=== PATIENT | female | born 1940 | race Caucasian/White ===

== ENCOUNTER 2018-02-19 10:16 | Observation (INO) | payer MEDICARE ==
[~2018-02-19] VITALS: Ht 157.5 cm; Wt 54.0 kg
[~2018-02-19 10:16] MED LIST: ADVAIR 100-501 EACH INH; ALENDRONATE SOD70 MG PO; AMLODIPINE BESYL5 MG PO; ASPIRIN81 MG PO; BUSPIRONE HCL5 MG PO; CARVEDILOL12.5 MG PO; CARVEDILOL25 MG PO; LOSARTAN POTASS25 MG PO; LOSARTAN POTASS50 MG PO; METFORMIN HCL500 MG PO; OMEPRAZOLE20 M1 PO; PROAIR HFA INH8.5 GM INH; PROAIR HFA INH8.5 GM PO; SIMVASTATIN80 MG PO
[2018-02-19] MEDS ORDERED: ENALAPRILAT IV INJ 1.25 MG/ML VIAL IV STA ×2 (10:31→12:01)
[2018-02-19] MEDS ORDERED: DEXAMETHASONE SOD PHOS 10 MG/1 ML VIAL IV ONE (10:45)
[2018-02-19] MEDS ORDERED: ALBUTEROL/IPRATROPIUM 3 ML NEB NEB ONE ×2 (10:45→12:30)
[2018-02-19] MEDS ORDERED: MAGNESIUM SULFATE 2GM/50ML 50 ML IV ONE (10:45)
[2018-02-19 11:13] LABS: BASOPHILS % 0.1 % (0.0-1.0); HEMATOCRIT 39.3 % (34.2-44.1); LYMPHOCYTES # (AUTO) 1.2 (1.0-3.2); LYMPHOCYTES % 12.5 % (18.0-39.1); MEAN CORPUSCULAR HEMOGLOBIN 29.7 pg (28-32); MEAN CORPUSCULAR HGB CONC 33.1 g/dL (31-35); MEAN CORPUSCULAR VOLUME 89.7 fL (81-99); MONOCYTES # (AUTO) 0.7 (0.2-0.8); NEUTROPHILS # (AUTO) 7.9 (2.1-6.9); NEUTROPHILS % 79.8 % (38.7-80.0); PLATELET COUNT 282 x10e3/uL (140-360); RED BLOOD COUNT 4.38 x10e6/uL (3.6-5.1); RED CELL DISTRIBUTION WIDTH 13.5 % (11.7-14.4)
--- NOTE | 2018-02-19 11:27 | Diagnostic Imaging Report ---
PROCEDURE: Frontal and lateral views of the chest. COMPARISON: Chest radiograph 01/03/2017 INDICATIONS: COUGH, SHORNTESS OF BREATH FINDINGS: Lines/tubes: Removal of the right internal jugular catheter since 01/03/2017. Lungs: The lungs are hyperinflated and clear. There is no evidence of pneumonia or pulmonary edema. Pleura: There is no pleural effusion or pneumothorax. Heart and mediastinum: Aortic calcifications. Heart cardiac silhouette is normal in size. Bones: No acute bony abnormality. IMPRESSION: No acute cardiopulmonary disease. Dictated by: Too Rodriguez M.D. on 02/19/2018 at 11:28 Electronically approved by: Too Rodriguez M.D. on 02/19/2018 at 11:28
[2018-02-19 11:32] LABS: ALANINE AMINOTRANSFERASE 24 IU/L (0-55); ALBUMIN 3.5 g/dL (3.5-5.0); ALBUMIN/GLOBULIN RATIO 0.9 (0.8-2.0); ALKALINE PHOSPHATASE 79 IU/L (40-150); ANION GAP 14.2 mmol/L (8-16); BLOOD UREA NITROGEN 9 mg/dL (7-26); BUN/CREATININE RATIO 14 (6-25); CALCIUM 9.9 mg/dL (8.4-10.2); CARBON DIOXIDE 27 mmol/L (22-29); CHLORIDE 103 mmol/L (98-107); CREATININE, SERUM 0.64 mg/dL (0.57-1.11); EST GLOMERULAR FILTRATION RATE > 60 ML/MIN (60-); GLUCOSE 129 mg/dL (74-118); POTASSIUM 3.2 mmol/L (3.5-5.1); SODIUM 141 mmol/L (136-145)
--- OUTSIDE RECORDS SUMMARY | 2018-02-19 12:43 | XMS REPORT ---
Author Author [facility] Address Unknown Phone Unavailable Care Team Providers Care Crayon Grader Name Role Phone FUAD TORRES Unavailable Unavailable Problems This patient has no known problems. Allergies, Adverse Reactions, Alerts This patient has no known allergies or adverse reactions. Medications This patient has no known medications. Results Test Description Test Time Test Comments Text Results Atomic Results Result Comments CHEST 2 VIEWS [place] [address] Patient Name: FORREST TALBOT MR #: [id number] : 1940 Age/Sex: 77/F Req #: [id number] Adm Physician: Ordered by: FUAD TORRES MD Report #: [id number] Location: ER Room/Bed: Procedure: [id number] DX/CHEST 2 VIEWS Exam Date: 02/19/18 Exam Time: 1050 REPORT STATUS: Signed PROCEDURE: Frontal and lateral views of the chest. COMPARISON: Chest radiograph 01/03/2017 INDICATIONS: COUGH, SHORNTESS OF BREATH FINDINGS: Lines/tubes: Removal of the right internal jugular catheter since 01/03/2017. Lungs: The lungs are hyperinflated and clear. There is no evidence of pneumonia or pulmonary edema. Pleura: There is no pleural effusion or pneumothorax. Heart and mediastinum: Aortic calcifications. Heart cardiac silhouette is normal in size. Bones: No acute bony abnormality. IMPRESSION: No acute cardiopulmonary disease. Dictated by: Too Rodriguez M.D. on 09/2018 at 11:28 Electronically approved by: Too Rodriguez M.D. on 02/19 at 11:28 Dictated By: TOO RODRIGUEZ MD [id number] Transcribed By: LORNA on 02/19/18 1128 COPY TO: FUAD TORRES MD
[2018-02-19] MEDS ORDERED: LEVOFLOXACIN 500MG/D5W 100ML IV SCH (12:45)
[2018-02-19] MEDS ORDERED: SODIUM CHLORIDE FLUSH 10 ML SYR INJ PRN (12:45)
[2018-02-19] MEDS ORDERED: ASPIRIN 81 MG CHEW TAB PO ONE (12:45)
[2018-02-19] MEDS: METHYLPREDNISOLONE SOD SUCC 125 MG/2ML VIAL IV SCH ×2 (14:12→23:12)
--- NOTE | 2018-02-19 15:45 | History and Physical ---
PRIMARY CARE PHYSICIAN: Keiry Lopez MD CHIEF COMPLAINT: Shortness of breath. HISTORY OF PRESENT ILLNESS: This is a 77-year-old woman with history of COPD, who developed worsening shortness of breath when she quit cigarettes 3 years ago. She went to her primary care doctor due to the shortness of breath and left-sided mild chest discomfort. She was given medication, which she does not recall the name of. Due to worsening symptoms, she came to the hospital for the worsening shortness of breath. She denies any dizziness. Denies any nausea, vomiting or diarrhea. PAST MEDICAL HISTORY: COPD, diabetes mellitus type 2, tobacco abuse, GERD, gastroenteritis, dehydration, acute kidney injury, hyperlipidemia, hypertension, osteoporosis. PAST SURGICAL HISTORY: Hysterectomy. ALLERGIES: PER ELECTRONIC MEDICAL RECORD. FAMILY HISTORY: Hypertension. SOCIAL HISTORY: The patient is . She has 2 children. She lives with her daughter. No alcohol or illicits. She quit cigarettes 3 years ago. MEDICATIONS: Per electronic medical record. REVIEW OF SYSTEMS: Denies any dizziness, fever, chills, sweats. VITAL SIGNS: Reviewed. PHYSICAL EXAMINATION GENERAL: A tired-appearing woman resting in bed. HEENT: Anicteric. Pupils are responsive to light. No oral lesions. CARDIOVASCULAR: Normal S1 and S2. LUNGS: She has moderate breath sounds, some moderate decrease at the bases. She has scattered wheezing. ABDOMEN: Soft, nontender, nondistended. EXTREMITIES: No edema or calf tenderness. NEUROLOGIC: Alert, oriented times 3, moving all extremities. SKIN: Dry. PSYCHIATRIC: Normal affect. LABS: Reviewed. MEDICATIONS: Reviewed. ASSESSMENT AND PLAN: This is a 77-year-old woman. 1. Acute exacerbation of chronic obstructive pulmonary disease. We will treat with antihistamine, antitussive, antibiotics, and steroids. Chest x-ray is clear. 2. Cough. Use antitussive medication. 3. Diabetes mellitus, type 2. Obtain hemoglobin A1c and lipid panel. Use sliding-scale insulin. 4. Hypokalemia. Replace and recheck. 5. Hypertension. Restart calcium channel jayesh. 6. Hyperlipidemia. Continue statin. 7. Prophylaxis: Will use Lovenox and Pepcid. 8. Disposition: Monitor closely. Follow up labs in the morning and treat. Job#: [id number]
[2018-02-19] MEDS: GUAIFENESIN/DEXTROMETHORPHAN LIQD 5 ML UDC NG PRN (16:45)
[2018-02-19] MEDS: ENOXAPARIN SOD INJ 40 MG/0.4 ML SYR SC SCH (16:45)
[2018-02-19] MEDS: FAMOTIDINE 20 MG TAB PO SCH (16:45)
[2018-02-19] MEDS: CARVEDILOL 12.5 MG TAB PO SCH (16:45)
[2018-02-19] MEDS ORDERED: NON-FORMULARY MEDICATION (Carvedilol 25 MG) PO SCH (17:00)
[2018-02-19] MEDS ORDERED: GUAIFENESIN 600MG/DEXTROMETHORPHAN 30MG TABSR PO SCH (17:00)
[2018-02-19] MEDS: ALBUTEROL/IPRATROPIUM 3 ML NEB NEB SCH ×2 (19:25→23:00)
[2018-02-19 19:50] LABS: CREATINE KINASE 81 IU/L (29-168)
[2018-02-19 22:00] VITALS: BP 135/80
[2018-02-19] MEDS: BENZONATATE 100 MG CAP PO SCH (23:12)
[2018-02-19] MEDS ORDERED: POTASSIUM CHLORIDE 20 MEQ TAB CR PO STA (23:21)
[2018-02-19] MEDS ORDERED: DEXTROSE 50% SYRINGE 50 ML IV PRN (23:30)
[2018-02-20] VITALS: BP 161/76
[2018-02-20] MEDS: GUAIFENESIN/DEXTROMETHORPHAN LIQD 5 ML UDC NG PRN ×2 (00:14→20:42)
[2018-02-20] MEDS: ALBUTEROL/IPRATROPIUM 3 ML NEB NEB SCH ×4 (02:45→18:45)
[2018-02-20 03:31] LABS: BASOPHILS % 0.1 % (0.0-1.0); HEMATOCRIT 36.7 % (34.2-44.1); HEMOGLOBIN 12.1 g/dL (12.0-16.0); LYMPHOCYTES % 12.2 % (18.0-39.1); MEAN CORPUSCULAR HEMOGLOBIN 29.3 pg (28-32); MEAN CORPUSCULAR VOLUME 88.9 fL (81-99); MONOCYTES # (AUTO) 0.2 (0.2-0.8); MONOCYTES % 2.7 % (4.4-11.3); NEUTROPHILS % 84.5 % (38.7-80.0); PLATELET COUNT 262 x10e3/uL (140-360); RED BLOOD COUNT 4.13 x10e6/uL (3.6-5.1); RED CELL DISTRIBUTION WIDTH 13.5 % (11.7-14.4)
[2018-02-20 03:46] LABS: BLOOD UREA NITROGEN 16 mg/dL (7-26); BUN/CREATININE RATIO 25 (6-25); CALCIUM 8.9 mg/dL (8.4-10.2); CARBON DIOXIDE 29 mmol/L (22-29); CHLORIDE 106 mmol/L (98-107); CREATINE KINASE 83 IU/L (29-168); CREATININE, SERUM 0.65 mg/dL (0.57-1.11); EST GLOMERULAR FILTRATION RATE > 60 ML/MIN (60-); GLUCOSE 186 mg/dL (74-118); SODIUM 142 mmol/L (136-145)
[2018-02-20 04:00] VITALS: BP 154/69
[2018-02-20] MEDS: METHYLPREDNISOLONE SOD SUCC 125 MG/2ML VIAL IV SCH (05:30)
[2018-02-20] MEDS ORDERED: ACETAMINOPHEN 325 MG TAB PO PRN (06:45)
[2018-02-20] MEDS: FAMOTIDINE 20 MG TAB PO SCH ×2 (08:21→15:44)
[2018-02-20] MEDS: LORATADINE 10 MG TAB PO SCH (08:21)
[2018-02-20] MEDS: ASPIRIN 81 MG CHEW TAB PO SCH (08:21)
[2018-02-20] MEDS: BUSPIRONE HCL 5 MG TAB PO SCH (08:21)
[2018-02-20] MEDS: CARVEDILOL 12.5 MG TAB PO SCH ×2 (08:21→16:41)
[2018-02-20] MEDS: LOSARTAN POTASSIUM 25 MG TAB PO SCH (08:22)
[2018-02-20] MEDS: AMLODIPINE BESYLATE 5 MG TAB PO SCH (08:22)
[2018-02-20] MEDS: BENZONATATE 100 MG CAP PO SCH ×3 (08:22→20:33)
[2018-02-20 08:48] VITALS: BP 173/75
[2018-02-20] MEDS ORDERED: NON-FORMULARY MEDICATION (Losartan Potassium 50 MG) PO SCH (09:00)
[2018-02-20 10:36] VITALS: BP 173/75
[2018-02-20 12:00] VITALS: BP 178/74
[2018-02-20] MEDS ORDERED: SODIUM CHLORIDE 0.9% 250ML 250 ML ONE (13:12)
[2018-02-20] MEDS: LEVOFLOXACIN 500MG/D5W 100ML 100 ML IV SCH (13:16)
[2018-02-20] MEDS ORDERED: METHYLPREDNISOLONE SOD SUCC 125 MG/2ML VIAL IV SCH (14:00)
[2018-02-20] MEDS: METHYLPREDNISOLONE SOD SUCC 40 MG/ML VIAL IV SCH ×2 (14:28→22:45)
[2018-02-20 16:34] VITALS: BP 159/71
[2018-02-20] MEDS: ENOXAPARIN SOD INJ 40 MG/0.4 ML SYR SC SCH (16:42)
[2018-02-21] VITALS (7 sets, daily range): BP systolic 153–186; BP diastolic 70–80
[2018-02-21] MEDS: ALBUTEROL/IPRATROPIUM 3 ML NEB NEB SCH ×3 (01:00→13:30)
[2018-02-21] MEDS: METHYLPREDNISOLONE SOD SUCC 40 MG/ML VIAL IV SCH ×2 (06:15→15:26)
[2018-02-21] MEDS ORDERED: PREDNISONE20 MG PO (06:17)
[2018-02-21] MEDS ORDERED: TESSALON PERLE100 MG PO (06:17)
[2018-02-21] MEDS ORDERED: Guaifenesin/Dextromethorphan NG (06:17)
[2018-02-21] MEDS ORDERED: LORATADINE10 MG PO (06:17)
[2018-02-21] MEDS ORDERED: LEVAQUIN500 MG PO (06:17)
[2018-02-21] MEDS: CARVEDILOL 12.5 MG TAB PO SCH ×2 (08:28→17:37)
[2018-02-21] MEDS: LORATADINE 10 MG TAB PO SCH (08:28)
[2018-02-21] MEDS: FAMOTIDINE 20 MG TAB PO SCH ×2 (08:28→16:59)
[2018-02-21] MEDS: ASPIRIN 81 MG CHEW TAB PO SCH (08:28)
[2018-02-21] MEDS: AMLODIPINE BESYLATE 5 MG TAB PO SCH (08:29)
[2018-02-21] MEDS: LOSARTAN POTASSIUM 25 MG TAB PO SCH (08:29)
[2018-02-21] MEDS: BENZONATATE 100 MG CAP PO SCH ×3 (08:29→15:26)
[2018-02-21] MEDS: BUSPIRONE HCL 5 MG TAB PO SCH (08:42)
--- NOTE | 2018-02-21 09:01 | Progress Note ---
DATE: February 20, 2018 TIME: 6:30 a.m. OVERNIGHT: Some shortness of breath. REVIEW OF SYSTEMS: Denies any dizziness or chest pain. PHYSICAL EXAMINATION VITAL SIGNS: Reviewed. GENERAL: A tired-appearing woman resting in bed. HEENT: Anicteric. CARDIOVASCULAR: Normal S1 and S2. LUNGS: She has reduced breath sounds. ABDOMEN: Soft and nontender. EXTREMITIES: No edema. SKIN: Dry. PSYCHIATRIC: Normal affect. LABS: Reviewed. MEDICATIONS: Reviewed. ASSESSMENT: A 77-year-old woman with: 1. Acute exacerbation of chronic obstructive pulmonary disease. 2. Cough. 3. Diabetes mellitus, type 2. 4. Hypokalemia. 5. Hypertension. 6. Hyperlipidemia. PLAN 1. Continue antitussive medications. 2. Continue steroids. 3. Continue antihistamines. 4. Continue oxygen support. 5. Physical therapy. 6. Discharge planning. Job#: [id number] RAKEL
--- NOTE | 2018-02-21 09:46 | Discharge Summary ---
PRINCIPAL DIAGNOSES 1. Acute exacerbation of chronic obstructive pulmonary disease. 2. Diabetes mellitus, type 2. 3. Hypokalemia. 4. Hypertension. 5. Hyperlipidemia. SECONDARY DIAGNOSIS: Hypertension. CHIEF COMPLAINT: Shortness of breath. HISTORY OF PRESENT ILLNESS: This is a 77-year-old woman with shortness of breath. Please refer to the H and P for further details. HOSPITAL COURSE: The patient was treated with steroids, antitussive medications, antihistamine and antibiotics for treatment of acute exacerbation of COPD. Did well. Hemoglobin A1c was obtained, which was 6.3. LDL was 98. The patient is doing well. We will check her oxygen on ambulation without oxygen and determine if she needs oxygen at home. DISCHARGE MEDICATIONS: Per electronic medical record. FOLLOWUP: With primary care doctor in 1 week. CONDITION ON DISCHARGE: Stable and improving. DISCHARGE LOCATION: Home. RACHELE WILLARD MD Job#: [id number]
[2018-02-21] MEDS ORDERED: DEXTROSE 50% SYRINGE 50 ML IV PRN (12:15)
[2018-02-21] MEDS: LEVOFLOXACIN 500MG/D5W 100ML 100 ML IV SCH (12:21)
[2018-02-21] MEDS: INSULIN REGULAR, HUMAN 100 UNIT/1 ML 3ML VIAL SQ SCH ×2 (12:29→17:38)
[2018-02-21] MEDS ORDERED: NIFEDIPINE CR 30 MG TAB PO SCH (12:30)
[2018-02-21] MEDS ORDERED: HYDRALAZINE HCL 20 MG/ML VIAL IV ONE (15:15)
[2018-02-21] MEDS ORDERED: INSULIN REGULAR, HUMAN 100 UNIT/1 ML 3ML VIAL SQ SCH (16:30)
[2018-02-21] MEDS: ENOXAPARIN SOD INJ 40 MG/0.4 ML SYR SC SCH (17:00)
[2018-02-21] MEDS: GUAIFENESIN/DEXTROMETHORPHAN LIQD 5 ML UDC NG PRN (17:00)
== END 2018-02-21 17:50 | disposition home or self-care (01) ==
LOC: ER 10:16 → ERHOLD 12:41 → IMCU 20:31
PROVIDERS: ADMIT Internal Medicine; ATTEND Internal Medicine
DX: J44.0 Chronic obstructive pulmonary disease with (acute) lower respiratory infection (principal); J20.9 Acute bronchitis, unspecified; J44.1 Chronic obstructive pulmonary disease with (acute) exacerbation; Z87.891 Personal history of nicotine dependence; E11.9 Type 2 diabetes mellitus without complications; E87.6 Hypokalemia; E78.5 Hyperlipidemia, unspecified; I10 Essential (primary) hypertension; K21.9 Gastro-esophageal reflux disease without esophagitis
CPT/HCPCS: 36415 ×3; 71046; 80048; 80053; 80061; 82550 ×2; 82553 ×2; 82948 ×2; 83036; 84484 ×2; 85025 ×2; 87040; 87400; 93005; 94640 ×5; 97116; 97161; 99284; G0378 ×3; J0360; J1100; J1650 ×2; J1956 ×3; J2920 ×2; J2930 ×2; J7050

== ENCOUNTER 2019-08-02 09:52 | Inpatient (IN) | payer MEDICARE ==
[~2019-08-02] VITALS: Ht 157.5 cm; Wt 59.9 kg
[~2019-08-02 09:52] MED LIST changes: +Guaifenesin/Dextromethorphan NG; +LEVAQUIN500 MG PO; +LORATADINE10 MG PO; +PREDNISONE20 MG PO; +TESSALON PERLE100 MG PO
--- OUTSIDE RECORDS SUMMARY | 2019-08-02 09:55 | XMS REPORT | Continuity of Care Document ---
Author Author [facility] Address Unknown Phone Unavailable Care Team Providers Care Steward/Stewardess Night Name Role Phone [facility] [employer] Information [place] Unavailable Unavailable Problems Problem Status Onset Date Classification Date Reported Comments Source Bronchitis Active Problem 02/21/[address] [facility] Chronic obstructive pulmonary disease with acute exacerbation Active Problem 02/21/[address] [facility] Medications Medication Details Route Status Patient Instructions Ordering Provider Order Date Source Benzonatate (Tessalon Perle) 100 Mg Capsule Three Times A Day Active [facility] 02/21/[address] [facility] Guaifenesin/Dextromethorphan 10 Ml Liqd Three Times A Day as needed for Cough Active [facility] 02/21/[address] [facility] Levofloxacin (Levaquin) 500 Mg Tablet Daily Active [facility] 02/21/[address] [facility] Loratadine 10 Mg Tablet Daily Active [facility] 02/21/[address] [facility] Prednisone 20 Mg Tab Every [address] [facility] 02/21/[address] [facility] Amlodipine Besylate 5 Mg Tablet, 5 Mg Oral Daily Active 02/21/[address] [facility] Albuterol Sulfate (Proair Hfa Inhaler*) 8.5 Gm Inh, Oral As Needed Active 07/31/[address] [facility] Carvedilol 12.5 Mg Tablet, 25 Mg Oral Twice A Day Active 07/31/[address] [facility] Omeprazole 20 Mg Tablet.dr, 20 Mg Oral Daily Active 07/31/[address] [facility] Losartan Potassium 25 Mg Tablet, 50 Mg Oral Daily Active 01/07/[address] [facility] Metformin Hcl 500 Mg Tablet, 500 Mg Oral Twice A Day Active 01/07/[address] [facility] Albuterol Sulfate (Proair Hfa Inhaler*) 8.5 Gm Inh As Needed Active [facility] Alendronate Sodium 70 Mg Tablet Wkly Active [facility] Aspirin 81 Mg Tab.chew Daily Active [facility] Buspirone Hcl 5 Mg Tablet Daily Active [facility] Carvedilol 25 Mg Tablet Twice A Day Active [facility] Fluticasone/Salmeterol (Advair 100-50 Diskus) 1 Each Disk.w.dev Twice A Day Active [facility] Losartan Potassium 50 Mg Tablet Daily Active [facility] Simvastatin 80 Mg Tablet Daily Active [facility] Allergies, Adverse Reactions, Alerts Substance Category Reaction Severity Reaction type Status Date Reported Comments Source Penicillin RASH Unknown Allergy to Substance Active 07/31/[address] [facility] Sulfa (Sulfonamide Antibiotics) RASH Unknown Allergy to Substance Active 07/31/[address] [facility] Codeine RASH Unknown Allergy to Substance Active 07/31/[address] [facility] Immunizations No Data Provided for This Section Results Order Name Results Value Reference Range Date Interpretation Comments Source Capillary blood glucose measurement by glucometer (mass/volume) Capillary blood glucose measurement by glucometer (mass/volume) 157 70 - 120 02/21/[address] [facility] Influenza virus A and B antigen identification by immunofluorescence Influenza virus A and B antigen identification by immunofluorescence NEGATIVE NEGATIVE 02/20/[address] [facility] Automated blood basophil count (count/volume) Automated blood basophil count (count/volume) 0.0 0.0 - 0.1 02/20/[address] [facility] Automated blood basophil count as percentage of total leukocytes Automated blood basophil count as percentage of total leukocytes 0.1 0.0 - 1.0 02/20/[address] [facility] Automated blood eosinophil count Automated blood eosinophil count 0.0 0.0 - 0.4 02/20/[address] [facility] Automated blood eosinophil count as percentage of total leukocytes Automated blood eosinophil count as percentage of total leukocytes 0.0 0.0 - 6.0 02/20/[address] [facility] Automated blood hematocrit (volume fraction) Automated blood hematocrit (volume fraction) 36.7 34.2 - 44.1 02/20/[address] [facility] Automated blood lymphocyte count as percentage ot total leukocytes Automated blood lymphocyte count as percentage ot total leukocytes 12.2 18.0 - 39.1 02/20/[address] [facility] Automated blood monocyte count as percentage of total leukocytes Automated blood monocyte count as percentage of total leukocytes 2.7 4.4 - 11.3 02/20/[address] [facility] Automated blood neutrophil count Automated blood neutrophil count 7.0 2.1 - 6.9 02/20/[address] [facility] Automated blood platelet count (count/volume) Automated blood platelet count (count/volume) 262 140 - 360 02/20/[address] [facility] Automated blood segmented neutrophil count as percentage of total leukocytes Automated blood segmented neutrophil count as percentage of total leukocytes 84.5 38.7 - 80.0 02/20/[address] [facility] Automated erythrocyte mean corpuscular hemoglobin (mass per erythrocyte) Automated erythrocyte mean corpuscular hemoglobin (mass per erythrocyte) 29.3 28 - 32 02/20/[address] [facility] Automated erythrocyte mean corpuscular hemoglobin concentration measurement (mass/volume) Automated erythrocyte mean corpuscular hemoglobin concentration measurement (mass/volume) 33.0 31 - 35 02/20/[address] [facility] Automated erythrocyte mean corpuscular volume Automated erythrocyte mean corpuscular volume 88.9 81 - 99 02/20/[address] [facility] Blood erythrocytes automated count (number/volume) Blood erythrocytes automated count (number/volume) 4.13 3.6 - 5.1 02/20/[address] [facility] Blood hemoglobin measurement (moles/volume) Blood hemoglobin measurement (moles/volume) 12.1 12.0 - 16.0 02/20/[address] [facility] Blood leukocytes automated count (number/volume) Blood leukocytes automated count (number/volume) 8.22 4.8 - 10.8 02/20/[address] [facility] Blood lymphocytes count (number/volume) Blood lymphocytes count (number/volume) 1.0 1.0 - 3.2 02/20/[address] [facility] Blood monocytes automated count (number/volume) Blood monocytes automated count (number/volume) 0.2 0.2 - 0.8 02/20/[address] [facility] Estimated glomerular filtration rate (GFR) determination Estimated glomerular filtration rate (GFR) determination >60 60 02/20/[address] [facility] Glucose measurement Glucose measurement 186 74 - 118 02/20/[address] [facility] Serum or plasma anion gap Serum or plasma anion gap 11.0 8 - 16 02/20/[address] [facility] Serum or plasma calcium measurement (mass/volume) Serum or plasma calcium measurement (mass/volume) 8.9 8.4 - 10.2 02/20/[address] [facility] Serum or plasma carbon dioxide, total measurement (moles/volume) Serum or plasma carbon dioxide, total measurement (moles/volume) 29 22 - 29 02/20/[address] [facility] Serum or plasma chloride measurement (moles/volume) Serum or plasma chloride measurement (moles/volume) 106 98 - 107 02/20/[address] [facility] Serum or plasma creatine kinase MB measurement (mass/volume) Serum or plasma creatine kinase MB measurement (mass/volume) 2.80 0 - 5.0 02/20/[address] [facility] Serum or plasma creatine kinase measurement (enzymatic activity/volume) Serum or plasma creatine kinase measurement (enzymatic activity/volume) 83 29 - 168 02/20/[address] [facility] Serum or plasma creatinine measurement (mass/volume) Serum or plasma creatinine measurement (mass/volume) 0.65 0.57 - 1.11 02/20/[address] [facility] Serum or plasma potassium measurement (moles/volume) Serum or plasma potassium measurement (moles/volume) 4.0 3.5 - 5.1 02/20/[address] [facility] Serum or plasma sodium measurement (moles/volume) Serum or plasma sodium measurement (moles/volume) 142 136 - 145 02/20/[address] [facility] Serum or plasma urea nitrogen measurement (mass/volume) Serum or plasma urea nitrogen measurement (mass/volume) 16 7 - 26 02/20/[address] [facility] Serum or plasma urea nitrogen/creatinine mass ratio Serum or plasma urea nitrogen/creatinine mass ratio 25 6 - 25 02/20/[address] [facility] Troponin I measurement by highly sensitive enzyme immunoassay Troponin I measurement by highly sensitive enzyme immunoassay <0.001 0 - 0.300 02/20/[address] [facility] Red Cell Distribution Width 13.5 11.7 - 14.4 02/20/[address] [facility] IM GRANULOCYTES % 0.5 0.0 - 1.0 02/20/[address] [facility] Absolute Immature Granulocyte (auto 0.04 0 - 0.1 02/20/[address] [facility] Blood culture Blood culture NO GROWTH AFTER 48 HOURS 02/19/[address] [facility] Plasma globulin measurement (mass/volume) Plasma globulin measurement (mass/volume) 3.9 2.3 - 3.5 02/19/[address] [facility] Serum or plasma alanine aminotransferase measurement (enzymatic activity/volume) Serum or plasma alanine aminotransferase measurement (enzymatic activity/volume) 24 0 - 55 02/19/[address] [facility] Serum or plasma albumin measurement (mass/volume) Serum or plasma albumin measurement (mass/volume) 3.5 3.5 - 5.0 02/19/[address] [facility] Serum or plasma albumin/globulin mass ratio Serum or plasma albumin/globulin mass ratio 0.9 0.8 - 2.0 02/19/[address] [facility] Serum or plasma alkaline phosphatase measurement (enzymatic activity/volume) Serum or plasma alkaline phosphatase measurement (enzymatic activity/volume) 79 40 - 150 02/19/[address] [facility] Serum or plasma cholesterol in HDL measurement (mass/volume) Serum or plasma cholesterol in HDL measurement (mass/volume) 56 40 - 60 02/19/[address] [facility] Serum or plasma cholesterol in LDL measurement (mass/volume) Serum or plasma cholesterol in LDL measurement (mass/volume) 98 60 - 130 02/19/[address] [facility] Serum or plasma cholesterol measurement (mass/volume) Serum or plasma cholesterol measurement (mass/volume) 169 0 - 199 02/19/[address] [facility] Serum or plasma protein measurement (mass/volume) Serum or plasma protein measurement (mass/volume) 7.4 6.5 - 8.1 02/19/[address] [facility] Serum or plasma total bilirubin measurement (mass/volume) Serum or plasma total bilirubin measurement (mass/volume) 0.4 0.2 - 1.2 02/19/[address] [facility] Serum or plasma total cholesterol/cholesterol in HDL mass ratio Serum or plasma total cholesterol/cholesterol in HDL mass ratio 3.0 3.0 - 3.6 02/19/[address] [facility] Serum or plasma triglyceride measurement (mass/volume) Serum or plasma triglyceride measurement (mass/volume) 74 0 - 149 02/19/[address] [facility] Hemoglobin A1c Percent 6.3 4.0 - 7.0 02/19/[address] [facility] Aspartate Amino Transf (AST/SGOT) 20 5 - 34 02/19/[address] [facility] Pathology Reports No Data Provided for This Section Diagnostic Reports No Data Provided for This Section Consultation Notes No Data Provided for This Section Discharge Summaries No Data Provided for This Section History and Physicals No Data Provided for This Section Vital Signs No Data Provided for This Section Encounters Location Location Details Encounter Type Encounter Number Reason For Visit Attending Provider ADM Date DC Date Status Source Registered Clinic [id number] BRODY PARRA MD 07/30/[address] [facility] Registered Surgical Day Care [id number] BRODY PARRA MD 09/06/[address] [facility] Discharged Inpatient (obs) [id number] RACHELE WILLARD MD 02/19/2018 02/21/[address] [facility] Procedures Procedure Code Date Perfomer Comments Source X-ray of chest, two views [id number] 02/19/[address] [facility] Assessment and Plan No Data Provided for This Section Plan of Care Plan of Care Date Source Discharge Date 02/21/18 5:50pm Disposition HOME, SELF-CARE Instructions/Education Provided COPD Prescriptions See Medication Section Referrals pcp (Internal Medicine) Order Date: 5-7 Days Entered Date: 02/21/2018 6:18am Additional Instructions/Education [employer] PRESCIPT[facility] FOR PROCARDIA XL AT [facility] ON [address] 02/21/[address] [facility] Social History Social History Date Source Social History Problem Response Recorded Date/Time Onset Date Status Hx Psychiatric Problems No 02/19/2018 10:00pm Not Applicable Not Applicable Hx Eating Disorder No 02/19/2018 10:00pm Not Applicable Not Applicable Hx Substance Use Disorder No 02/19/2018 10:00pm Not Applicable Not Applicable Hx Depression No 02/19/2018 10:00pm Not Applicable Not Applicable Hx Alcohol Use No 02/19/2018 10:00pm Not Applicable Not Applicable Hx Substance Use Treatment No 02/19/2018 10:00pm Not Applicable Not Applicable Hx Physical Abuse No 02/19/2018 10:00pm Not Applicable Not Applicable Smoking Status Start Date Stop Date Former smoker 02/21/[address] [facility] Family History No Data Provided for This Section Advance Directives Order Name Results Value Date Source Advance Directives Advance Directives Directive Response Recorded Date/Time Does the patient have an advance directive? No 02/19/18 10:00pm If yes, is advance directive on file with [facility]? No 02/19/18 10:00pm If not on file with [facility] will patient provide a copy? No 02/19/18 10:00pm Do you have a Directive to Physician? No 02/19/18 11:40am Do you have a Medical Power of [place] Former? No 02/19/18 11:40am Do you have an out of hospital Do Not Resuscitate Order? No 02/19/18 11:40am Do you have any special needs we should be aware of? No 02/19/18 11:40am Do you have a support person here with you today? Yes 02/19/18 11:40am Did patient receive Notice of Privacy Practices? Yes 02/19/18 11:40am Did patient receive patient rights and responsibilities? Yes 02/19/18 11:40am 02/21/[address] [facility] Functional Status No Data Provided for This Section
--- OUTSIDE RECORDS SUMMARY | 2019-08-02 10:00 | XMS REPORT | Continuity of Care Document ---
Author Author [employer] Address Unknown Phone Unavailable Care Team Providers Care Gis Programmer Name Role Phone [facility] [employer] (now [employer] Information [employer] Unavailable Unavailable Problems Problem Status Onset Date Classification Date Reported Comments Source Bronchitis Active Problem 02/21/[facility] Chronic obstructive pulmonary disease with acute exacerbation Active Problem 02/21/2018 [facility] Medications Medication Details Route Status Patient Instructions Ordering Provider Order Date Source Benzonatate (Tessalon Perle) 100 Mg Capsule Three Times A Day Active [facility] 02/21/[facility] Guaifenesin/Dextromethorphan 10 Ml Liqd Three Times A Day as needed for Cough Active [facility] 02/21/[facility] Levofloxacin (Levaquin) 500 Mg Tablet Daily Active [facility] 02/21/2018 [facility] Loratadine 10 Mg Tablet Daily Active [facility] 02/21/2018 [facility] Prednisone 20 Mg Tab Every 12 Hours Active [facility] 02/21/2018 [facility] Amlodipine Besylate 5 Mg Tablet, 5 Mg Oral Daily Active 02/21/2018 [facility] Albuterol Sulfate (Proair Hfa Inhaler*) 8.5 Gm Inh, Oral As Needed Active 07/31/2017 [facility] Carvedilol 12.5 Mg Tablet, 25 Mg Oral Twice A Day Active 07/31/2017 [facility] Omeprazole 20 Mg Tablet.dr, 20 Mg Oral Daily Active 07/31/2017 [facility] Losartan Potassium 25 Mg Tablet, 50 Mg Oral Daily Active 01/07/2017 [facility] Metformin Hcl 500 Mg Tablet, 500 Mg Oral Twice A Day Active 01/07/2017 [facility] Albuterol Sulfate (Proair Hfa Inhaler*) 8.5 Gm Inh As Needed Active [facility] Alendronate Sodium 70 Mg Tablet Wkly Active [facility] Aspirin 81 Mg Tab.chew Daily Active [facility] Buspirone Hcl 5 Mg Tablet Daily Active [facility] Carvedilol 25 Mg Tablet Twice A Day Active [facility] Fluticasone/Salmeterol (Advair 100-50 Diskus) 1 Each Disk.w.dev Twice A Day Active [facility] Losartan Potassium 50 Mg Tablet Daily Active [facility] Simvastatin 80 Mg Tablet Daily Active [facility] Allergies, Adverse Reactions, Alerts Substance Category Reaction Severity Reaction type Status Date Reported Comments Source Penicillin RASH Unknown Allergy to Substance Active 07/31/2017 [facility] Sulfa (Sulfonamide Antibiotics) RASH Unknown Allergy to Substance Active 07/31/2017 [facility] Codeine RASH Unknown Allergy to Substance Active 07/31/2017 [facility] Immunizations No Data Provided for This Section Results Order Name Results Value Reference Range Date Interpretation Comments Source Capillary blood glucose measurement by glucometer (mass/volume) Capillary blood glucose measurement by glucometer (mass/volume) 157 70 - 120 02/21/2018 [facility] Influenza virus A and B antigen identification by immunofluorescence Influenza virus A and B antigen identification by immunofluorescence NEGATIVE NEGATIVE 02/20/2018 [facility] Automated blood basophil count (count/volume) Automated blood basophil count (count/volume) 0.0 0.0 - 0.1 02/20/2018 [facility] Automated blood basophil count as percentage of total leukocytes Automated blood basophil count as percentage of total leukocytes 0.1 0.0 - 1.0 02/20/2018 [facility] Automated blood eosinophil count Automated blood eosinophil count 0.0 0.0 - 0.4 02/20/2018 [facility] Automated blood eosinophil count as percentage of total leukocytes Automated blood eosinophil count as percentage of total leukocytes 0.0 0.0 - 6.0 02/20/2018 [facility] Automated blood hematocrit (volume fraction) Automated blood hematocrit (volume fraction) 36.7 34.2 - 44.1 02/20/2018 [facility] Automated blood lymphocyte count as percentage ot total leukocytes Automated blood lymphocyte count as percentage ot total leukocytes 12.2 18.0 - 39.1 02/20/2018 [facility] Automated blood monocyte count as percentage of total leukocytes Automated blood monocyte count as percentage of total leukocytes 2.7 4.4 - 11.3 02/20/2018 [facility] Automated blood neutrophil count Automated blood neutrophil count 7.0 2.1 - 6.9 02/20/2018 [facility] Automated blood platelet count (count/volume) Automated blood platelet count (count/volume) 262 140 - 360 02/20/2018 [facility] Automated blood segmented neutrophil count as percentage of total leukocytes Automated blood segmented neutrophil count as percentage of total leukocytes 84.5 38.7 - 80.0 02/20/2018 [facility] Automated erythrocyte mean corpuscular hemoglobin (mass per erythrocyte) Automated erythrocyte mean corpuscular hemoglobin (mass per erythrocyte) 29.3 28 - 32 02/20/2018 [facility] Automated erythrocyte mean corpuscular hemoglobin concentration measurement (mass/volume) Automated erythrocyte mean corpuscular hemoglobin concentration measurement (mass/volume) 33.0 31 - 35 02/20/2018 [facility] Automated erythrocyte mean corpuscular volume Automated erythrocyte mean corpuscular volume 88.9 81 - 99 02/20/2018 [facility] Blood erythrocytes automated count (number/volume) Blood erythrocytes automated count (number/volume) 4.13 3.6 - 5.1 02/20/2018 [facility] Blood hemoglobin measurement (moles/volume) Blood hemoglobin measurement (moles/volume) 12.1 12.0 - 16.0 02/20/2018 [facility] Blood leukocytes automated count (number/volume) Blood leukocytes automated count (number/volume) 8.22 4.8 - 10.8 02/20/2018 [facility] Blood lymphocytes count (number/volume) Blood lymphocytes count (number/volume) 1.0 1.0 - 3.2 02/20/2018 [facility] Blood monocytes automated count (number/volume) Blood monocytes automated count (number/volume) 0.2 0.2 - 0.8 02/20/2018 [facility] Estimated glomerular filtration rate (GFR) determination Estimated glomerular filtration rate (GFR) determination >60 60 02/20/2018 [facility] Glucose measurement Glucose measurement 186 74 - 118 02/20/2018 [facility] Serum or plasma anion gap Serum or plasma anion gap 11.0 8 - 16 02/20/2018 [facility] Serum or plasma calcium measurement (mass/volume) Serum or plasma calcium measurement (mass/volume) 8.9 8.4 - 10.2 02/20/2018 [facility] Serum or plasma carbon dioxide, total measurement (moles/volume) Serum or plasma carbon dioxide, total measurement (moles/volume) 29 22 - 29 02/20/2018 [facility] Serum or plasma chloride measurement (moles/volume) Serum or plasma chloride measurement (moles/volume) 106 98 - 107 02/20/2018 [facility] Serum or plasma creatine kinase MB measurement (mass/volume) Serum or plasma creatine kinase MB measurement (mass/volume) 2.80 0 - 5.0 02/20/2018 [facility] Serum or plasma creatine kinase measurement (enzymatic activity/volume) Serum or plasma creatine kinase measurement (enzymatic activity/volume) 83 29 - 168 02/20/2018 [facility] Serum or plasma creatinine measurement (mass/volume) Serum or plasma creatinine measurement (mass/volume) 0.65 0.57 - 1.11 02/20/2018 [facility] Serum or plasma potassium measurement (moles/volume) Serum or plasma potassium measurement (moles/volume) 4.0 3.5 - 5.1 02/20/2018 [facility] Serum or plasma sodium measurement (moles/volume) Serum or plasma sodium measurement (moles/volume) 142 136 - 145 02/20/2018 [facility] Serum or plasma urea nitrogen measurement (mass/volume) Serum or plasma urea nitrogen measurement (mass/volume) 16 7 - 26 02/20/2018 [facility] Serum or plasma urea nitrogen/creatinine mass ratio Serum or plasma urea nitrogen/creatinine mass ratio 25 6 - 25 02/20/2018 [facility] Troponin I measurement by highly sensitive enzyme immunoassay Troponin I measurement by highly sensitive enzyme immunoassay <0.001 0 - 0.300 02/20/2018 [facility] Red Cell Distribution Width 13.5 11.7 - 14.4 02/20/2018 [facility] IM GRANULOCYTES % 0.5 0.0 - 1.0 02/20/2018 [facility] Absolute Immature Granulocyte (auto 0.04 0 - 0.1 02/20/2018 [facility] Blood culture Blood culture NO GROWTH AFTER 48 HOURS 02/19/2018 [facility] Plasma globulin measurement (mass/volume) Plasma globulin measurement (mass/volume) 3.9 2.3 - 3.5 02/19/2018 [facility] Serum or plasma alanine aminotransferase measurement (enzymatic activity/volume) Serum or plasma alanine aminotransferase measurement (enzymatic activity/volume) 24 0 - 55 02/19/2018 [facility] Serum or plasma albumin measurement (mass/volume) Serum or plasma albumin measurement (mass/volume) 3.5 3.5 - 5.0 02/19/2018 [facility] Serum or plasma albumin/globulin mass ratio Serum or plasma albumin/globulin mass ratio 0.9 0.8 - 2.0 02/19/2018 [facility] Serum or plasma alkaline phosphatase measurement (enzymatic activity/volume) Serum or plasma alkaline phosphatase measurement (enzymatic activity/volume) 79 40 - 150 02/19/2018 [facility] Serum or plasma cholesterol in HDL measurement (mass/volume) Serum or plasma cholesterol in HDL measurement (mass/volume) 56 40 - 60 02/19/2018 [facility] Serum or plasma cholesterol in LDL measurement (mass/volume) Serum or plasma cholesterol in LDL measurement (mass/volume) 98 60 - 130 02/19/2018 [facility] Serum or plasma cholesterol measurement (mass/volume) Serum or plasma cholesterol measurement (mass/volume) 169 0 - 199 02/19/2018 [facility] Serum or plasma protein measurement (mass/volume) Serum or plasma protein measurement (mass/volume) 7.4 6.5 - 8.1 02/19/2018 [facility] Serum or plasma total bilirubin measurement (mass/volume) Serum or plasma total bilirubin measurement (mass/volume) 0.4 0.2 - 1.2 02/19/2018 [facility] Serum or plasma total cholesterol/cholesterol in HDL mass ratio Serum or plasma total cholesterol/cholesterol in HDL mass ratio 3.0 3.0 - 3.6 02/19/2018 [facility] Serum or plasma triglyceride measurement (mass/volume) Serum or plasma triglyceride measurement (mass/volume) 74 0 - 149 02/19/2018 [facility] Hemoglobin A1c Percent 6.3 4.0 - 7.0 02/19/2018 [facility] Aspartate Amino Transf (AST/SGOT) 20 5 - 34 02/19/2018 [facility] Pathology Reports No Data Provided for [...] Date DC Date Status Source Registered Clinic [id number] BRODY PARRA MD 07/30/2017 [facility] Registered [facility] [id number] BRODY PARRA MD 09/06/2017 [facility] Discharged Inpatient (obs) [id number] RACHELE WILLARD MD 02/19/2018 02/21/2018 [facility] Procedures Procedure Code Date Perfomer Comments Source X-ray of chest, two views [id number] 02/19/2018 [facility] Assessment and Plan No Data Provided for This Section Plan of Care Plan of Care Date Source Discharge Date 02/21/18 5:50pm Disposition HOME, SELF-CARE Instructions/Education Provided COPD Prescriptions See Medication Section Referrals pcp (Internal Medicine) Order Date: 5-7 Days Entered Date: 02/21/2018 6:18am Additional Instructions/Education SECURITY CLERK PRESCIPTION FOR PROCARDIA XL AT [facility] ON [address] 02/21/[facility] Social History Social History Date Source [...] Start Date Stop Date Former smoker 02/21/2018 [facility] Family History No Data Provided for This Section Advance Directives Order Name Results Value Date Source Advance Directives Advance Directives Directive Response Recorded Date/Time Does the patient have an advance directive? No 02/19/18 10:00pm If yes, is advance directive on file with [facility]? No 02/19/18 10:00pm If not on file with [facility] will patient provide a copy? No 02/19/18 10:00pm Do you have a Directive to Physician? No 02/19/18 11:40am Do you have a Medical Power of Orthotist? No 02/19/18 11:40am Do you have an [...] rights and responsibilities? Yes 02/19/18 11:40am 02/21/[facility] Functional Status No Data Provided for This Section
[2019-08-02] MEDS ORDERED: ALBUTEROL SULF 0.083% NEB SOLN 3 ML NEB NEB NR (10:15)
[2019-08-02] MEDS ORDERED: IPRATROPIUM BROMIDE 0.02% 2.5 ML NEB NEB ONE (10:15)
[2019-08-02] MEDS ORDERED: METHYLPREDNISOLONE SOD SUCC 125 MG/2ML VIAL IV NR (10:15)
[2019-08-02 10:35] LABS: BASOPHILS % 0.2 % (0.0-1.0); EOSINOPHILS # (AUTO) 0.1 (0.0-0.4); EOSINOPHILS % 0.8 % (0.0-6.0); HEMATOCRIT 39.9 % (34.2-44.1); HEMOGLOBIN 13.2 g/dL (12.0-16.0); LYMPHOCYTES % 16.7 % (18.0-39.1); MEAN CORPUSCULAR HEMOGLOBIN 29.7 pg (28-32); MEAN CORPUSCULAR HGB CONC 33.1 g/dL (31-35); MEAN CORPUSCULAR VOLUME 89.7 fL (81-99); MONOCYTES % 8.1 % (4.4-11.3); NEUTROPHILS # (AUTO) 8.9 (2.1-6.9); NEUTROPHILS % 73.9 % (38.7-80.0); PLATELET COUNT 245 x10e3/uL (140-360); RED BLOOD COUNT 4.45 x10e6/uL (3.6-5.1); RED CELL DISTRIBUTION WIDTH 13.3 % (11.7-14.4)
[2019-08-02 10:51] LABS: ALANINE AMINOTRANSFERASE 15 IU/L (0-55); ALBUMIN 3.4 g/dL (3.5-5.0); ALKALINE PHOSPHATASE 92 IU/L (40-150); ANION GAP 14.3 mmol/L (8-16); BLOOD UREA NITROGEN 14 mg/dL (7-26); BUN/CREATININE RATIO 18 (6-25); CALCIUM 9.3 mg/dL (8.4-10.2); CARBON DIOXIDE 27 mmol/L (22-29); CHLORIDE 103 mmol/L (98-107); CREATINE KINASE 69 IU/L (29-168); CREATININE, SERUM 0.78 mg/dL (0.57-1.11); EST GLOMERULAR FILTRATION RATE > 60 ML/MIN (60-); GLUCOSE 152 mg/dL (74-118); MAGNESIUM 1.7 MG/DL (1.3-2.1); POTASSIUM 3.3 mmol/L (3.5-5.1); SODIUM 141 mmol/L (136-145)
[2019-08-02 11:09] LABS: B-TYPE NATRIURETIC PEPTIDE2 105.1 pg/mL (0-100)
--- NOTE | 2019-08-02 11:23 | Diagnostic Imaging Report ---
Examination: Single AP view of the chest. COMPARISON: February 19, 2018 INDICATION: Shortness of breath DISCUSSION: Lines/tubes: None. Lungs: The lungs are well inflated and clear. No pneumonia or pulmonary edema. Pleura: No pleural effusion or pneumothorax. Heart and mediastinum: The heart and the mediastinum are unremarkable. Bones and soft tissues: No acute bony abnormalities. IMPRESSION: 1. No acute cardiopulmonary abnormalities. Signed by: Dr. Brody Hawkins M.D. on 08/02/2019 11:19 AM
[2019-08-02 11:44] LABS: INR 1.01; PROTHROMBIN TIME 13.8 seconds (11.9-14.5)
[2019-08-02 11:45] LABS: PARTIAL THROMBOPLASTIN TIME 36.6 seconds (23.8-35.5)
[2019-08-02 11:57] LABS: CLARITY,URINE SL CLOUDY (CLEAR); COLOR,URINE YELLOW (YELLOW); LEUKOCYTE ESTERASE ,URINE TRACE (NEGATIVE); NITRITE,URINE NEGATIVE (NEGATIVE); PROTEIN,URINE DIPSTICK TRACE (NEGATIVE)
[2019-08-02 11:58] LABS: BACTERIA,URINE FEW /HPF; BILIRUBIN,URINE NEGATIVE (NEGATIVE); EPITHELIAL CELLS,URINE FEW /LPF; KETONES,URINE NEGATIVE (NEGATIVE); URINE UROBILINOGEN 0.2 mg/dL (0.2 - 1)
[2019-08-02 11:59] LABS: MUCUS,URINE MODERATE (RARE)
[2019-08-02] MEDS ORDERED: DEXTROSE 50% SYRINGE 50 ML IV PRN (12:30)
--- OUTSIDE RECORDS SUMMARY | 2019-08-02 12:41 | XMS REPORT | Continuity of Care Document ---
Author Author [employer] Address Unknown Phone Unavailable Care Team Providers Care Mica Inspector Name Role Phone [facility] [employer] Information [place] Unavailable Unavailable Problems Problem Status Onset Date Classification Date Reported Comments Source Bronchitis Active Problem 02/21/2018 [facility] Chronic obstructive pulmonary disease with acute exacerbation Active Problem 02/21/2018 [facility] Medications Medication Details Route Status Patient Instructions Ordering Provider Order Date Source Benzonatate (Tessalon Perle) 100 Mg Capsule Three Times A Day Active [facility] 02/21/2018 [facility] Guaifenesin/Dextromethorphan 10 Ml Liqd Three Times A Day as needed for Cough Active [facility] 02/21/2018 [facility] Levofloxacin (Levaquin) 500 Mg Tablet Daily Active [facility] 02/21/2018 [facility] Loratadine 10 Mg Tablet Daily Active [facility] 02/21/2018 [facility] Prednisone 20 Mg Tab Every 12 Hours Active [facility] 02/21/2018 [facility] Amlodipine Besylate 5 Mg Tablet, 5 Mg Oral Daily Active 02/21/2018 [facility] Albuterol Sulfate (Proair Hfa Inhaler*) 8.5 Gm Inh, Oral As Needed Active 07/31/2017 [facility] Carvedilol 12.5 Mg Tablet, 25 Mg Oral Twice A Day Active 07/31/2017 [facility] Omeprazole 20 Mg Tablet.dr, 20 Mg Oral Daily Active 07/31/2017 [facility] Losartan Potassium 25 Mg Tablet, 50 Mg Oral Daily Active 01/07/2017 [facility] Metformin Hcl 500 Mg Tablet, 500 Mg Oral Twice A Day Active 01/07/2017 [facility] Albuterol Sulfate (Proair Hfa Inhaler*) 8.5 Gm Inh As Needed Active [facility] Alendronate Sodium 70 Mg Tablet Wkly Active [facility] Aspirin 81 Mg Tab.chew Daily Active [facility] Buspirone Hcl 5 Mg Tablet Daily Active [facility] Carvedilol 25 Mg Tablet Twice A Day Active [facility] Fluticasone/Salmeterol (Advair 100-50 Diskus) 1 Each Disk.w.dev Twice A Day Active [facility] Losartan Potassium 50 Mg Tablet Daily Active [facility] Simvastatin 80 Mg Tablet Daily Active [facility] Allergies, Adverse Reactions, Alerts Substance Category Reaction Severity Reaction type Status Date Reported Comments Source Penicillin RASH Unknown Allergy to Substance Active 07/31/2017 [facility] Sulfa (Sulfonamide Antibiotics) RASH Unknown Allergy to Substance Active 07/31/2017 [facility] Codeine RASH Unknown Allergy to Substance Active 07/31/2017 [facility] Immunizations No Data Provided for This Section Results Order Name Results Value Reference Range Date Interpretation Comments Source Capillary blood glucose measurement by glucometer (mass/volume) Capillary blood glucose measurement by glucometer (mass/volume) 157 70 - 120 02/21/2018 [facility] Influenza virus A and B antigen identification by immunofluorescence Influenza virus A and B antigen identification by immunofluorescence NEGATIVE NEGATIVE 02/20/2018 [facility] Automated blood basophil count (count/volume) Automated blood basophil count (count/volume) 0.0 0.0 - 0.1 02/20/2018 [facility] Automated blood basophil count as percentage of total leukocytes Automated blood basophil count as percentage of total leukocytes 0.1 0.0 - 1.0 02/20/2018 [facility] Automated blood eosinophil count Automated blood eosinophil count 0.0 0.0 - 0.4 02/20/2018 [facility] Automated blood eosinophil count as percentage of total leukocytes Automated blood eosinophil count as percentage of total leukocytes 0.0 0.0 - 6.0 02/20/2018 [facility] Automated blood hematocrit (volume fraction) Automated blood hematocrit (volume fraction) 36.7 34.2 - 44.1 02/20/2018 [facility] Automated blood lymphocyte count as percentage ot total leukocytes Automated blood lymphocyte count as percentage ot total leukocytes 12.2 18.0 - 39.1 02/20/2018 [facility] Automated blood monocyte count as percentage of total leukocytes Automated blood monocyte count as percentage of total leukocytes 2.7 4.4 - 11.3 02/20/2018 [facility] Automated blood neutrophil count Automated blood neutrophil count 7.0 2.1 - 6.9 02/20/2018 [facility] Automated blood platelet count (count/volume) Automated blood platelet count (count/volume) 262 140 - 360 02/20/2018 [facility] Automated blood segmented neutrophil count as percentage of total leukocytes Automated blood segmented neutrophil count as percentage of total leukocytes 84.5 38.7 - 80.0 02/20/2018 [facility] Automated erythrocyte mean corpuscular hemoglobin (mass per erythrocyte) Automated erythrocyte mean corpuscular hemoglobin (mass per erythrocyte) 29.3 28 - 32 02/20/2018 [facility] Automated erythrocyte mean corpuscular hemoglobin concentration measurement (mass/volume) Automated erythrocyte mean corpuscular hemoglobin concentration measurement (mass/volume) 33.0 31 - 35 02/20/2018 [facility] Automated erythrocyte mean corpuscular volume Automated erythrocyte mean corpuscular volume 88.9 81 - 99 02/20/2018 [facility] Blood erythrocytes automated count (number/volume) Blood erythrocytes automated count (number/volume) 4.13 3.6 - 5.1 02/20/2018 [facility] Blood hemoglobin measurement (moles/volume) Blood hemoglobin measurement (moles/volume) 12.1 12.0 - 16.0 02/20/2018 [facility] Blood leukocytes automated count (number/volume) Blood leukocytes automated count (number/volume) 8.22 4.8 - 10.8 02/20/2018 [facility] Blood lymphocytes count (number/volume) Blood lymphocytes count (number/volume) 1.0 1.0 - 3.2 02/20/2018 [facility] Blood monocytes automated count (number/volume) Blood monocytes automated count (number/volume) 0.2 0.2 - 0.8 02/20/2018 [facility] Estimated glomerular filtration rate (GFR) determination Estimated glomerular filtration rate (GFR) determination >60 60 02/20/2018 [facility] Glucose measurement Glucose measurement 186 74 - 118 02/20/2018 [facility] Serum or plasma anion gap Serum or plasma anion gap 11.0 8 - 16 02/20/2018 [facility] Serum or plasma calcium measurement (mass/volume) Serum or plasma calcium measurement (mass/volume) 8.9 8.4 - 10.2 02/20/2018 [facility] Serum or plasma carbon dioxide, total measurement (moles/volume) Serum or plasma carbon dioxide, total measurement (moles/volume) 29 22 - 29 02/20/2018 [facility] Serum or plasma chloride measurement (moles/volume) Serum or plasma chloride measurement (moles/volume) 106 98 - 107 02/20/2018 [facility] Serum or plasma creatine kinase MB measurement (mass/volume) Serum or plasma creatine kinase MB measurement (mass/volume) 2.80 0 - 5.0 02/20/2018 [facility] Serum or plasma creatine kinase measurement (enzymatic activity/volume) Serum or plasma creatine kinase measurement (enzymatic activity/volume) 83 29 - 168 02/20/2018 [facility] Serum or plasma creatinine measurement (mass/volume) Serum or plasma creatinine measurement (mass/volume) 0.65 0.57 - 1.11 02/20/2018 [facility] Serum or plasma potassium measurement (moles/volume) Serum or plasma potassium measurement (moles/volume) 4.0 3.5 - 5.1 02/20/2018 [facility] Serum or plasma sodium measurement (moles/volume) Serum or plasma sodium measurement (moles/volume) 142 136 - 145 02/20/2018 [facility] Serum or plasma urea nitrogen measurement (mass/volume) Serum or plasma urea nitrogen measurement (mass/volume) 16 7 - 26 02/20/2018 [facility] Serum or plasma urea nitrogen/creatinine mass ratio Serum or plasma urea nitrogen/creatinine mass ratio 25 6 - 25 02/20/2018 [facility] Troponin I measurement by highly sensitive enzyme immunoassay Troponin I measurement by highly sensitive enzyme immunoassay <0.001 0 - 0.300 02/20/2018 [facility] Red Cell Distribution Width 13.5 11.7 - 14.4 02/20/2018 [facility] IM GRANULOCYTES % 0.5 0.0 - 1.0 02/20/2018 [facility] Absolute Immature Granulocyte (auto 0.04 0 - 0.1 02/20/2018 [facility] Blood culture Blood culture NO GROWTH AFTER 48 HOURS 02/19/2018 [facility] Plasma globulin measurement (mass/volume) Plasma globulin measurement (mass/volume) 3.9 2.3 - 3.5 02/19/2018 [facility] Serum or plasma alanine aminotransferase measurement (enzymatic activity/volume) Serum or plasma alanine aminotransferase measurement (enzymatic activity/volume) 24 0 - 55 02/19/2018 [facility] Serum or plasma albumin measurement (mass/volume) Serum or plasma albumin measurement (mass/volume) 3.5 3.5 - 5.0 02/19/2018 [facility] Serum or plasma albumin/globulin mass ratio Serum or plasma albumin/globulin mass ratio 0.9 0.8 - 2.0 02/19/2018 [facility] Serum or plasma alkaline phosphatase measurement (enzymatic activity/volume) Serum or plasma alkaline phosphatase measurement (enzymatic activity/volume) 79 40 - 150 02/19/2018 [facility] Serum or plasma cholesterol in HDL measurement (mass/volume) Serum or plasma cholesterol in HDL measurement (mass/volume) 56 40 - 60 02/19/2018 [facility] Serum or plasma cholesterol in LDL measurement (mass/volume) Serum or plasma cholesterol in LDL measurement (mass/volume) 98 60 - 130 02/19/2018 [facility] Serum or plasma cholesterol measurement (mass/volume) Serum or plasma cholesterol measurement (mass/volume) 169 0 - 199 02/19/2018 [facility] Serum or plasma protein measurement (mass/volume) Serum or plasma protein measurement (mass/volume) 7.4 6.5 - 8.1 02/19/2018 [facility] Serum or plasma total bilirubin measurement (mass/volume) Serum or plasma total bilirubin measurement (mass/volume) 0.4 0.2 - 1.2 02/19/2018 [facility] Serum or plasma total cholesterol/cholesterol in HDL mass ratio Serum or plasma total cholesterol/cholesterol in HDL mass ratio 3.0 3.0 - 3.6 02/19/2018 [facility] Serum or plasma triglyceride measurement (mass/volume) Serum or plasma triglyceride measurement (mass/volume) 74 0 - 149 02/19/2018 [facility] Hemoglobin A1c Percent 6.3 4.0 - 7.0 02/19/2018 [facility] Aspartate Amino Transf (AST/SGOT) 20 5 - 34 02/19/2018 [facility] Pathology Reports No Data Provided for This [...] Date DC Date Status Source Registered Clinic [id number] BRODY PARRA MD 07/30/2017 [facility] Registered Surgical Day Care [id number] BRODY PARRA MD 09/06/2017 [facility] Discharged Inpatient (obs) [id number] RACHELE WILLARD MD 02/19/2018 02/21/2018 [facility] Procedures Procedure Code Date Perfomer Comments Source X-ray of chest, two views [id number] 02/19/2018 [facility] Assessment and Plan No Data Provided for This Section Plan of Care Plan of Care Date Source Discharge Date 02/21/18 5:50pm Disposition HOME, SELF-CARE Instructions/Education Provided COPD Prescriptions See Medication Section Referrals pcp (Internal Medicine) Order Date: 5-7 Days Entered Date: 02/21/2018 6:18am Additional Instructions/Education MANAGER PLANNING PRESCIPTION FOR PROCARDIA XL AT [facility] ON [address] 02/21/2018 [facility] Social History Social History Date Source Social [...] Start Date Stop Date Former smoker 02/21/2018 [facility] Family History No Data Provided for This Section Advance Directives Order Name Results Value Date Source Advance Directives Advance Directives Directive Response Recorded Date/Time Does the patient have an advance directive? No 02/19/18 10:00pm If yes, is advance directive on file with [facility]? No 02/19/18 10:00pm If not on file with [facility] will patient provide a copy? No 02/19/18 10:00pm Do you have a Directive to Physician? No 02/19/18 11:40am Do you have a Medical Power of Feeder Catcher Tobacco? No 02/19/18 11:40am Do you have an [...] rights and responsibilities? Yes 02/19/18 11:40am 02/21/2018 [facility] Functional Status No Data Provided for This Section
[2019-08-02] MEDS: CEFTRIAXONE SOD 1 GM/NS 50 ML 50 ML IV SCH (13:00)
[2019-08-02] MEDS: AZITHROMYCIN 500MG/NS 250 ML 250 ML IV SCH (13:26)
[2019-08-02] MEDS: NICOTINE 14 MG/EA PATCH TOP SCH (13:26)
[2019-08-02] MEDS ORDERED: CEFTRIAXONE SOD 1 GM VIAL ONE (13:33)
--- NOTE | 2019-08-02 13:43 | NUR ---
RECEIVED PATIENT FROM ER. PATIENT A/O X3, EVEN RESPIRATIONS ON 2LNC. PATIENT HAS A NON-PRODUCTIVE COUGH. BOWEL SOUNDS PRESENT. SKIN INTACT, NO EDEMA. LEFT FA 20 GAUGE IV WITH IVF @ 75 CC/HR. PATIENT AMBULATES INDEPENDENTLY. NO PAIN OR DISCOMFORT AT THIS TIME. ORIENTED PATIENT TO ROOM. BED LOW, WHEELS LOCKED, SIDE RAILS X2. CALL LIGHT IN REACH WILL CONTINUE TO MONITOR PATIENT.
[2019-08-02 14:04] VITALS: BP 188/80
[2019-08-02 14:35] VITALS: BP 188/80
[2019-08-02 14:37] VITALS: BP 188/80
[2019-08-02] MEDS: TELMISARTAN 40 MG TAB PO SCH (15:08)
[2019-08-02] MEDS: CARVEDILOL 12.5 MG TAB PO SCH (15:08)
[2019-08-02] MEDS: ALBUTEROL SULF 0.083% NEB SOLN 3 ML NEB NEB SCH ×3 (15:14→23:20)
[2019-08-02] MEDS: IPRATROPIUM BROMIDE 0.02% 2.5 ML NEB NEB SCH ×3 (15:14→23:20)
[2019-08-02 15:59] VITALS: BP 152/68
[2019-08-02] MEDS: INSULIN LISPRO 100 UNIT/1 ML 3ML VIAL SQ SCH ×2 (17:19→21:03)
[2019-08-02] MEDS: SODIUM CHLORIDE 0.9% 1000ML 1,000 ML IV SCH (17:19)
[2019-08-02] MEDS ORDERED: METHYLPREDNISOLONE SOD SUCC 125 MG/2ML VIAL IV SCH (18:00)
[2019-08-02 19:53] LABS: CREATINE KINASE 56 IU/L (29-168)
[2019-08-02 20:00] VITALS: BP 126/65
[2019-08-03] VITALS (7 sets, daily range): BP systolic 150–170; BP diastolic 65–71
[2019-08-03] MEDS ORDERED: METHYLPREDNISOLONE SOD SUCC 125 MG/2ML VIAL IV SCH (01:00)
[2019-08-03] MEDS: SODIUM CHLORIDE 0.9% 1000ML 1,000 ML IV SCH ×3 (01:36→14:56)
[2019-08-03 03:56] LABS: BASOPHILS % 0.1 % (0.0-1.0); HEMATOCRIT 35.6 % (34.2-44.1); HEMOGLOBIN 11.8 g/dL (12.0-16.0); LYMPHOCYTES # (AUTO) 0.9 (1.0-3.2); LYMPHOCYTES % 10.4 % (18.0-39.1); MEAN CORPUSCULAR HEMOGLOBIN 29.7 pg (28-32); MEAN CORPUSCULAR HGB CONC 33.1 g/dL (31-35); MEAN CORPUSCULAR VOLUME 89.7 fL (81-99); MONOCYTES # (AUTO) 0.2 (0.2-0.8); MONOCYTES % 2.4 % (4.4-11.3); NEUTROPHILS # (AUTO) 7.5 (2.1-6.9); NEUTROPHILS % 86.3 % (38.7-80.0); PLATELET COUNT 220 x10e3/uL (140-360); RED BLOOD COUNT 3.97 x10e6/uL (3.6-5.1); RED CELL DISTRIBUTION WIDTH 13.1 % (11.7-14.4)
[2019-08-03] MEDS: IPRATROPIUM BROMIDE 0.02% 2.5 ML NEB NEB SCH ×6 (04:00→23:15)
[2019-08-03] MEDS: ALBUTEROL SULF 0.083% NEB SOLN 3 ML NEB NEB SCH ×6 (04:00→23:15)
[2019-08-03 04:24] LABS: CREATINE KINASE MB 1.4 ng/mL (0-5.0)
[2019-08-03 04:40] LABS: ALANINE AMINOTRANSFERASE 14 IU/L (0-55); ALKALINE PHOSPHATASE 78 IU/L (40-150); ANION GAP 11.3 mmol/L (8-16); BLOOD UREA NITROGEN 18 mg/dL (7-26); BUN/CREATININE RATIO 25 (6-25); CALCIUM 8.8 mg/dL (8.4-10.2); CARBON DIOXIDE 24 mmol/L (22-29); CHLORIDE 105 mmol/L (98-107); CREATININE, SERUM 0.73 mg/dL (0.57-1.11); EST GLOMERULAR FILTRATION RATE > 60 ML/MIN (60-); GLUCOSE 240 mg/dL (74-118); POTASSIUM 3.3 mmol/L (3.5-5.1); SODIUM 137 mmol/L (136-145)
--- NOTE | 2019-08-03 07:19 | NUR ---
PRIMARY CARE PHYSICIAN: Keiry Lopez MD CHIEF COMPLAINT: SOB. HISTORY OF PRESENT ILLNESS: This is a 78year-old woman with history of COPD, now with sob. COPD exa. PAST MEDICAL HISTORY: COPD, diabetes mellitus type 2, tobacco abuse, GERD, gastroenteritis, dehydration, acute kidney injury, hyperlipidemia, hypertension, osteoporosis, hypokalemia PAST SURGICAL HISTORY: Hysterectomy. ALLERGIES: PER ELECTRONIC MEDICAL RECORD. FAMILY HISTORY: Hypertension. SOCIAL HISTORY: The patient is . She has 2 children. She lives with her daughter. No alcohol or illicits. She quit cigarettes 3 years ago. MEDICATIONS: Per electronic medical record. REVIEW OF SYSTEMS: no f/c/s/n/V/D/HUSSEIN/vision changes/skin rash/cp/dizziness/back pain. VITAL SIGNS: Reviewed. PHYSICAL EXAMINATION GENERAL: nad HEENT: Anicteric. Pupils are responsive to light. No oral lesions. CARDIOVASCULAR: Normal S1 and S2. LUNGS: reduced BS ABDOMEN: Soft, nontender, nondistended. EXTREMITIES: No edema or calf tenderness. NEUROLOGIC: Alert, oriented times 3, moving all extremities. SKIN: Dry. PSYCHIATRIC: Normal affect. LABS: Reviewed. MEDICATIONS: Reviewed. ASSESSMENT AND PLAN: This is a 78-year-old woman. AECOPD DM2 HTn HLD GERD Nicotine dependence in remission Hypokalemia UTI PLAN IV abx Nebs/O2/antihistamine/antitussives Lovenox; pepcid dispo; Jun Mackenzie MD, PhD.
[2019-08-03] MEDS: INSULIN LISPRO 100 UNIT/1 ML 3ML VIAL SQ SCH ×4 (07:30→21:00)
[2019-08-03 07:45] LABS: CHOL/HDL RATIO 4.1 (3.0-3.6)
[2019-08-03] MEDS ORDERED: CARVEDILOL 12.5 MG TAB PO SCH (08:00)
[2019-08-03] MEDS: FAMOTIDINE 20 MG TAB PO SCH ×2 (08:57→17:06)
[2019-08-03] MEDS: METHYLPREDNISOLONE SOD SUCC 125 MG/2ML VIAL IV SCH ×2 (08:57→21:00)
[2019-08-03] MEDS: AZITHROMYCIN 500MG/NS 250 ML 250 ML IV SCH (08:57)
[2019-08-03] MEDS: TELMISARTAN 40 MG TAB PO SCH (08:58)
[2019-08-03] MEDS: GUAIFENESIN 600MG/DEXTROMETHORPHAN 30MG TABSR PO SCH ×2 (08:58→17:06)
[2019-08-03] MEDS: BENZONATATE 100 MG CAP PO SCH ×3 (08:58→21:00)
[2019-08-03] MEDS: LOSARTAN POTASSIUM 25 MG TAB PO SCH (08:58)
[2019-08-03] MEDS: LORATADINE 10 MG TAB PO SCH (08:58)
[2019-08-03] MEDS: CARVEDILOL 12.5 MG TAB PO SCH ×2 (08:58→17:06)
[2019-08-03] MEDS: CEFTRIAXONE SOD 1 GM/NS 50 ML 50 ML IV SCH (13:04)
[2019-08-03] MEDS: NICOTINE 14 MG/EA PATCH TOP SCH (13:04)
[2019-08-03] MEDS: ENOXAPARIN SOD INJ 40 MG/0.4 ML SYR SC SCH (17:06)
--- NOTE | 2019-08-03 20:00 | NUR ---
INITIAL ASSESSMENT COMPETE, PT HAS IV TO RIGHT FA INFUSING, TELE #12 WITH CONTINUOUS PULSE OX, PT UP TO BSC WITH ASSIST, CALL LIGHT IN REACH, NO DISTRESS NOTED, VS STABLE, TOLD TO CALL FOR NEEDS
[2019-08-03] MEDS: SIMVASTATIN 80 MG TAB PO SCH (21:00)
[2019-08-04] VITALS (8 sets, daily range): BP systolic 139–177; BP diastolic 66–85
--- NOTE | 2019-08-04 00:05 | NUR ---
PT PULLED OUT IV TO LEFT FOREARM, IV PLACED IN RIGHT FOREARM PER PROTOCOL, ONE STICK WITH 22 GAUGE,
[2019-08-04] MEDS: IPRATROPIUM BROMIDE 0.02% 2.5 ML NEB NEB SCH ×6 (00:10→20:05)
[2019-08-04] MEDS: ALBUTEROL SULF 0.083% NEB SOLN 3 ML NEB NEB SCH ×5 (03:15→20:05)
[2019-08-04] MEDS: SODIUM CHLORIDE 0.9% 1000ML 1,000 ML IV SCH ×2 (04:16→17:36)
--- NOTE | 2019-08-04 05:30 | NUR ---
IM- progress note O/N no events REVIEW OF SYSTEMS: no f/c/s/n/V/D/HUSSEIN/vision changes/skin rash/cp/dizziness/back pain. VITAL SIGNS: Reviewed. PHYSICAL EXAMINATION GENERAL: nad HEENT: Anicteric. Pupils are responsive to light. No oral lesions. CARDIOVASCULAR: Normal S1 and S2. LUNGS: reduced BS ABDOMEN: Soft, nontender, nondistended. EXTREMITIES: No edema or calf tenderness. NEUROLOGIC: Alert, oriented times 3, moving all extremities. SKIN: Dry. PSYCHIATRIC: Normal affect. LABS: Reviewed. MEDICATIONS: Reviewed. ASSESSMENT AND PLAN: This is a 78-year-old woman. AECOPD DM2 HTn HLD GERD Nicotine dependence in remission Hypokalemia UTI PLAN IV abx Nebs/O2/antihistamine/antitussives Lovenox; pepcid dispo; 08/04 check K Jun Mackenzie MD, PhD.
--- NOTE | 2019-08-04 07:18 | NUR ---
Rcvd patient in report this am. Patient is asleep in bed at this time. No s/s of distress noted
[2019-08-04] MEDS: ASPIRIN 81 MG CHEW TAB PO SCH (08:11)
[2019-08-04] MEDS: AZITHROMYCIN 500MG/NS 250 ML 250 ML IV SCH (08:11)
[2019-08-04] MEDS: FAMOTIDINE 20 MG TAB PO SCH ×2 (08:11→16:15)
[2019-08-04] MEDS: METHYLPREDNISOLONE SOD SUCC 125 MG/2ML VIAL IV SCH ×2 (08:11→21:09)
[2019-08-04] MEDS: GUAIFENESIN 600MG/DEXTROMETHORPHAN 30MG TABSR PO SCH ×2 (08:11→16:16)
[2019-08-04] MEDS: CARVEDILOL 12.5 MG TAB PO SCH ×2 (08:14→16:16)
[2019-08-04] MEDS: BUSPIRONE HCL 5 MG TAB PO SCH (08:14)
[2019-08-04] MEDS: TELMISARTAN 40 MG TAB PO SCH (08:14)
[2019-08-04] MEDS: LORATADINE 10 MG TAB PO SCH ×2 (08:14)
[2019-08-04] MEDS: LOSARTAN POTASSIUM 25 MG TAB PO SCH (08:14)
[2019-08-04] MEDS: BENZONATATE 100 MG CAP PO SCH ×3 (08:21→21:09)
--- NOTE | 2019-08-04 09:00 | NUR ---
Patient is AAOx3. Patient lung fish diminished and wheezing noted to auscultation. Some shortness of breath noted at exertion. Removed oxygen at this time. O2 sats at rest are noted at 89%. No edema noted. Patient ambulates with assist. No c/o pain Right forearm 22G IV in place
[2019-08-04] MEDS: INSULIN LISPRO 100 UNIT/1 ML 3ML VIAL SQ SCH ×4 (09:11→21:09)
[2019-08-04] MEDS: CEFTRIAXONE SOD 1 GM/NS 50 ML 50 ML IV SCH (12:53)
[2019-08-04] MEDS: NICOTINE 14 MG/EA PATCH TOP SCH (13:40)
[2019-08-04] MEDS ORDERED: GUAIFENESIN/DEXTROMETHORPHAN LIQD 5 ML UDC PO PRN (13:45)
[2019-08-04] MEDS: ENOXAPARIN SOD INJ 40 MG/0.4 ML SYR SC SCH (16:16)
--- NOTE | 2019-08-04 19:00 | NUR ---
received report from day nurse. patient is resting comfortably in bed. bed is in lowest position and call light is within reach. will continue to monitor patient.
[2019-08-04] MEDS: SIMVASTATIN 80 MG TAB PO SCH (21:09)
[2019-08-05] VITALS (8 sets, daily range): BP systolic 180–208; BP diastolic 78–85
[2019-08-05] MEDS: ALBUTEROL SULF 0.083% NEB SOLN 3 ML NEB NEB SCH ×7 (00:05→20:05)
[2019-08-05] MEDS: IPRATROPIUM BROMIDE 0.02% 2.5 ML NEB NEB SCH ×6 (00:05→20:05)
--- NOTE | 2019-08-05 00:31 | NUR ---
patients blood pressure is 195/84. paged. awaiting call back from . Will continue to monitor patient's blood pressure.
--- NOTE | 2019-08-05 06:29 | NUR ---
MD contacted a second time regarding blood pressure, received new orders to increase patient's current dose of blood pressure medications. Will continue to monitor patients blood pressure.
--- NOTE | 2019-08-05 06:36 | NUR ---
IM- progress note O/N no events REVIEW OF SYSTEMS: no f/c/s/n/V/D/HUSSEIN/vision changes/skin rash/cp/dizziness/back pain. VITAL SIGNS: Reviewed. PHYSICAL EXAMINATION GENERAL: nad HEENT: Anicteric. Pupils are responsive to light. No oral lesions. CARDIOVASCULAR: Normal S1 and S2. LUNGS: reduced BS ABDOMEN: Soft, nontender, nondistended. EXTREMITIES: No edema or calf tenderness. NEUROLOGIC: Alert, oriented times 3, moving all extremities. SKIN: Dry. PSYCHIATRIC: Normal affect. LABS: Reviewed. MEDICATIONS: Reviewed. ASSESSMENT AND PLAN: This is a 78-year-old woman. AECOPD DM2 HTn HLD GERD Nicotine dependence in remission Hypokalemia UTI PLAN IV abx Nebs/O2/antihistamine/antitussives Lovenox; pepcid dispo; 08/04 check K 08/05 continue support; Uncontrolled HTN- control BP Jun Mackenzie MD, PhD.
[2019-08-05] MEDS: CARVEDILOL 12.5 MG TAB PO SCH ×3 (06:45→16:29)
[2019-08-05] MEDS: SODIUM CHLORIDE 0.9% 1000ML 1,000 ML IV SCH ×2 (06:56→19:56)
--- NOTE | 2019-08-05 07:15 | NUR ---
report given to day nurse. patient is resting comfortably in bed. bed is in lowest position and call light is within reach.
--- NOTE | 2019-08-05 07:15 | NUR ---
Attending MD has DC'D lossartan potassium.
--- NOTE | 2019-08-05 07:15 | NUR ---
RECEIVED PATIENT RESTING IN BED NO S/S OF DISTRESS. BED LOW, WHEELS LOCKED, SIDE RAILS X2. CALL LIGHT IN REACH WILL CONTINUE TO MONITOR PATIENT.
[2019-08-05] MEDS: INSULIN LISPRO 100 UNIT/1 ML 3ML VIAL SQ SCH ×4 (07:30→19:42)
[2019-08-05] MEDS: LORATADINE 10 MG TAB PO SCH (08:19)
[2019-08-05] MEDS: BUSPIRONE HCL 5 MG TAB PO SCH (08:19)
[2019-08-05] MEDS: AZITHROMYCIN 500MG/NS 250 ML 250 ML IV SCH (08:19)
[2019-08-05] MEDS: ASPIRIN 81 MG CHEW TAB PO SCH (08:19)
[2019-08-05] MEDS: TELMISARTAN 40 MG TAB PO SCH (08:20)
[2019-08-05] MEDS: BENZONATATE 100 MG CAP PO SCH ×3 (08:20→19:50)
[2019-08-05] MEDS: GUAIFENESIN 600MG/DEXTROMETHORPHAN 30MG TABSR PO SCH ×2 (08:20→16:53)
[2019-08-05] MEDS ORDERED: LOSARTAN POTASSIUM 25 MG TAB PO SCH (09:00)
[2019-08-05] MEDS ORDERED: LOSARTAN POTASSIUM 100 MG TAB PO SCH (09:00)
[2019-08-05] MEDS: FAMOTIDINE 20 MG TAB PO SCH ×2 (09:01→16:29)
--- NOTE | 2019-08-05 12:10 | NUR ---
Call placed to Dr. Mackenzie to inform of blood pressure being elevated and no prn orders. Awaiting call back
[2019-08-05] MEDS: NICOTINE 14 MG/EA PATCH TOP SCH (13:00)
[2019-08-05] MEDS: CEFTRIAXONE SOD 1 GM/NS 50 ML 50 ML IV SCH (13:00)
--- NOTE | 2019-08-05 13:10 | NUR ---
ORDERS FOR HOME 02 EVAL SATS 87% ON ROOM AIR CHOICE LETTER SIGNED FOR [facility] PH: [phone] CONTACTED HEATHER WITH [facility] AND PORTABLE TANKS DELIVERED TO PT'S ROOM IMM EXPLAINED TO PT, SIGNED BY PT AND PLACED ON CHART COPY TO PT COPY OF CHOICE LETTER TO PT
[2019-08-05] MEDS: LABETALOL HCL 5 MG/ML 20ML VIAL IV PRN ×2 (15:26→19:56)
--- NOTE | 2019-08-05 16:20 | NUR ---
Call placed to Dr. Mackenzie to inform that BP was rechecked and noted to be high still. Noted to be 186/88 manually. New order to give 5mg more of labetolol. Will give medications
[2019-08-05] MEDS ORDERED: LABETALOL HCL 5 MG/ML 20ML VIAL IV STA (16:23)
[2019-08-05] MEDS: ENOXAPARIN SOD INJ 40 MG/0.4 ML SYR SC SCH (16:53)
[2019-08-05] MEDS: SIMVASTATIN 80 MG TAB PO SCH (19:50)
[2019-08-06] VITALS: BP 173/71
[2019-08-06 04:00] VITALS: BP 197/84
[2019-08-06] MEDS: IPRATROPIUM BROMIDE 0.02% 2.5 ML NEB NEB SCH ×2 (04:00→07:50)
[2019-08-06] MEDS: ALBUTEROL SULF 0.083% NEB SOLN 3 ML NEB NEB SCH ×2 (04:00→07:50)
[2019-08-06] MEDS: LABETALOL HCL 5 MG/ML 20ML VIAL IV PRN (04:13)
[2019-08-06] MEDS ORDERED: NICODERM CQ1 EAC1 TOP (06:12)
[2019-08-06] MEDS ORDERED: Guaifenesin/Dextromethorphan NG (06:12)
[2019-08-06] MEDS ORDERED: ZITHROMAX500 MG PO (06:12)
[2019-08-06] MEDS ORDERED: KEFLEX500 MG PO (06:12)
[2019-08-06] MEDS ORDERED: TESSALON PERLE100 MG PO (06:12)
[2019-08-06] MEDS ORDERED: PREDNISONE20 MG PO (06:12)
[2019-08-06] MEDS ORDERED: COREG12.5 MG PO (06:14)
[2019-08-06] MEDS ORDERED: HYDRALAZINE HCL 20 MG/ML VIAL IV ONE (06:45)
--- NOTE | 2019-08-06 07:06 | NUR ---
Rcvd patient in report this am. Patient is awake in bed. No s/s of distress noted.
[2019-08-06] MEDS: INSULIN LISPRO 100 UNIT/1 ML 3ML VIAL SQ SCH (07:30)
[2019-08-06 08:00] VITALS: BP 167/76
[2019-08-06] MEDS: BUSPIRONE HCL 5 MG TAB PO SCH (08:08)
[2019-08-06] MEDS: CARVEDILOL 12.5 MG TAB PO SCH (08:08)
[2019-08-06] MEDS: AZITHROMYCIN 500MG/NS 250 ML 250 ML IV SCH (08:08)
[2019-08-06] MEDS: ASPIRIN 81 MG CHEW TAB PO SCH (08:08)
[2019-08-06] MEDS: FAMOTIDINE 20 MG TAB PO SCH (08:08)
[2019-08-06] MEDS: TELMISARTAN 40 MG TAB PO SCH (08:08)
[2019-08-06] MEDS: BENZONATATE 100 MG CAP PO SCH (08:09)
[2019-08-06] MEDS: GUAIFENESIN 600MG/DEXTROMETHORPHAN 30MG TABSR PO SCH (08:09)
[2019-08-06] MEDS: LORATADINE 10 MG TAB PO SCH (08:40)
--- NOTE | 2019-08-06 08:45 | NUR ---
Home O2 reassessed and noted to be 93% on Room air. Then ambulated with no oxygen and patient had increased shortness of breath and O2 sats at 89%. Informed Dr. Mackenzie of O2 sats. Patient has bedside O2 already
[2019-08-06 09:06] VITALS: BP 167/76
[2019-08-06] MEDS: SODIUM CHLORIDE 0.9% 1000ML 1,000 ML IV SCH (09:36)
--- NOTE | 2019-08-06 10:23 | NUR ---
Removed IV from left wrist. Pressure dressing applied
[2019-08-06] MEDS: NICOTINE 14 MG/EA PATCH TOP SCH (11:00)
--- NOTE | 2019-08-06 11:27 | NUR ---
Patient discharged from facility to home. Patient assisted out via staff. Reviewed all discharge paperwork, follow up appts, and RX's given. Home oxygen was delivered.
--- NOTE | 2019-10-12 07:59 | NUR ---
D/C summary Principal Dx: AECOPD Hypokalemia UTI Secondary Dx: DM2 HTn HLD GERD Nicotine dependence in remission PLAN IV abx Nebs/O2/antihistamine/antitussives Lovenox; pepcid dispo; 08/04 check K 08/05 continue support; Uncontrolled HTN- control BP d/c home stable f/u pcp 1 week and pulmonary care 1 week d/c>35mins Jun Mackenzie MD, PhD.
== END 2019-08-06 11:27 | disposition home health service (06) | DRG 191 ==
LOC: ER 09:58 → ERHOLD 12:37 → MED/SURG 13:45
PROVIDERS: ADMIT Internal Medicine; ATTEND Internal Medicine
DX: J44.1 Chronic obstructive pulmonary disease with (acute) exacerbation (principal); N39.0 Urinary tract infection, site not specified; E11.9 Type 2 diabetes mellitus without complications; I10 Essential (primary) hypertension; K21.9 Gastro-esophageal reflux disease without esophagitis; E87.6 Hypokalemia; E78.5 Hyperlipidemia, unspecified; Z87.891 Personal history of nicotine dependence
CPT/HCPCS: 36415; 71045; 80053; 80061; 81001; 82550; 82553; 82948; 83036; 83605; 83735; 83880; 84132; 84484; 85025; 85610; 85730; 87040; 87070; 87086; 87205; 87400; 93005; 94640; 96372; 99284; J0360; J0456; J0696; J1650; J2930; J7030

== ENCOUNTER → 2020-06-03 | Outpatient (CLI) | payer MEDICARE ==
[~2020-06-03] MED LIST changes: +COREG12.5 MG PO; +KEFLEX500 MG PO; +NICODERM CQ1 EAC1 TOP; +ZITHROMAX500 MG PO
--- NOTE | 2020-06-03 14:57 | Diagnostic Imaging Report ---
EXAMINATION: CHEST 2 VIEWS INDICATION: Cough COMPARISON: Chest radiograph 08/02/2019 FINDINGS: LINES/TUBES:None LUNGS:The lungs are hyperinflated. No focal consolidation or pulmonary edema. PLEURA:No pleural effusion or pneumothorax. MEDIASTINUM:The cardiomediastinal silhouette appears normal in size and shape. Atherosclerotic calcifications of the thoracic aorta. BONES/SOFT TISSUES:No acute osseous injury. ABDOMEN:No free air under the diaphragm. IMPRESSION: Hyperinflated lungs. No focal pneumonia or pulmonary edema. Signed by: Karen Chester MD on 06/03/2020 2:53 PM
== END ==
LOC: RAD 14:25
PROVIDERS: ATTEND Internal Medicine
DX: R60.9 Edema, unspecified (principal); R05 Cough
CPT/HCPCS: 71046; 93971

== ENCOUNTER 2021-06-23 13:58 | Emergency (ER) | payer MEDICARE ==
[~2021-06-23] VITALS: Ht 157.5 cm; Wt 62.6 kg
[2021-06-23] MEDS ORDERED: SODIUM CHLORIDE 0.9% 1000ML 1,000 ML IV ONE (14:15)
[2021-06-23] MEDS ORDERED: SODIUM CHLORIDE 0.9% 1000ML 1,000 ML ONE (14:25)
[2021-06-23 14:28] LABS: BASOPHILS # (AUTO) 0.1 (0.0-0.1); BASOPHILS % 0.7 % (0.0-1.0); EOSINOPHILS # (AUTO) 0.2 (0.0-0.4); EOSINOPHILS % 2.8 % (0.0-6.0); HEMATOCRIT 37.3 % (34.2-44.1); HEMOGLOBIN 12.2 g/dL (12.0-16.0); LYMPHOCYTES # (AUTO) 1.9 (1.0-3.2); LYMPHOCYTES % 26.4 % (18.0-39.1); MEAN CORPUSCULAR HEMOGLOBIN 30.4 pg (28-32); MEAN CORPUSCULAR HGB CONC 32.7 g/dL (31-35); MONOCYTES # (AUTO) 0.5 (0.2-0.8); MONOCYTES % 7.6 % (4.4-11.3); NEUTROPHILS # (AUTO) 4.4 (2.1-6.9); NEUTROPHILS % 61.9 % (38.7-80.0); PLATELET COUNT 200 x10e3/uL (140-360); RED BLOOD COUNT 4.01 x10e6/uL (3.6-5.1); RED CELL DISTRIBUTION WIDTH 12.9 % (11.7-14.4)
[2021-06-23 14:39] LABS: CLARITY,URINE CLEAR (CLEAR); COLOR,URINE YELLOW (YELLOW); LEUKOCYTE ESTERASE ,URINE NEGATIVE (NEGATIVE)
[2021-06-23 14:40] LABS: KETONES,URINE NEGATIVE (NEGATIVE); NITRITE,URINE NEGATIVE (NEGATIVE); PROTEIN,URINE DIPSTICK NEGATIVE (NEGATIVE); URINE UROBILINOGEN 0.2 mg/dL (0.2 - 1)
[2021-06-23 14:46] LABS: WBC,URINE (MAN) 0-5 /HPF (0-5)
[2021-06-23 14:47] LABS: BACTERIA,URINE MODERATE /HPF; EPITHELIAL CELLS,URINE FEW /LPF; MUCUS,URINE FEW (RARE); RBC,URINE 0-5 /HPF (0-5)
[2021-06-23 15:02] LABS: ALBUMIN 3.5 g/dL (3.5-5.0); ALBUMIN/GLOBULIN RATIO 1.2 (0.8-2.0); ANION GAP 15.2 mmol/L (8-16); CALCIUM 8.4 mg/dL (8.4-10.2); CREATININE, SERUM 1.15 mg/dL (0.57-1.11); POTASSIUM 4.2 mmol/L (3.5-5.1)
== END 2021-06-23 15:40 | disposition home or self-care (01) ==
LOC: ER 14:10
DX: E11.65 Type 2 diabetes mellitus with hyperglycemia (principal); Z79.4 Long term (current) use of insulin; I10 Essential (primary) hypertension; J44.9 Chronic obstructive pulmonary disease, unspecified; E78.5 Hyperlipidemia, unspecified
CPT/HCPCS: 36415; 80053; 81001; 82948; 85025; 99283; J7030